=== PATIENT | female | born 1980 | race Caucasian/White ===

== ENCOUNTER → 2020-06-25 16:11 | Outpatient (CLI) | payer OTHER, SELFPAY ==
--- NOTE | ~2020-06-25 | MM_ITS ---
EXAMINATION: MM screening [facility] BI w diogo HISTORY: Screening mammogram TECHNIQUE: Craniocaudal and mediolateral oblique 3-D tomosynthesis images were obtained and synthetic 2-D images were generated. CAD analysis was submitted and interpreted. COMPARISON: 01/18/2019, 01/08/2019 BREAST PARENCHYMAL COMPOSITION: The breasts are heterogeneously dense, which may obscure small masses . FINDINGS: There is no evidence of suspicious mass, calcification, or architectural distortion to sugg est malignancy in either breast. There has been no suspicious interval change. IMPRESSION: 1. No mammographic evidence of malignancy. 2. Recommend routine screening mammography in one year. BI-RADS Category 1: Negative Reviewed, dictated and finalized at location A. NURSE
== END ==
PROVIDERS: Visit Provider Obstetrics & Gynecology
DX: Z12.31 Encounter for screening mammogram for malignant neoplasm of breast (principal)
CPT/HCPCS: 77063; 77067

== ENCOUNTER 2021-06-02 18:45 | Emergency (ER) | payer OTHER, SELFPAY ==
--- NOTE | ~2021-06-02 | XR_ITS ---
EXAMINATION: XR wrist RT min 3V INDICATION: Right wrist pain TECHNIQUE: Four views of the right wrist are obtained. COMPARISON: None available FINDINGS: There is no fracture, dislocation, or subluxation. The bones, soft tissues, and joint space s are normal. IMPRESSION: 1. No acute osseous abnormality. Reviewed, dictated and finalized at location A.
--- NOTE | ~2021-06-02 | XR_ITS ---
EXAMINATION: XR hand RT min 3V INDICATION: Right hand pain TECHNIQUE: Three views of the right hand are obtained. COMPARISON: None available FINDINGS: There is no fracture, dislocation, or subluxation. The bones, soft tissues, and joint space s are normal. IMPRESSION: 1. No acute osseous abnormality. Reviewed, dictated and finalized at location A.
[2021-06-02 18:52] VITALS: BP 138/86; PULSE 76; RESP 18; TEMP 37.1; O2SAT 100
--- NOTE | 2021-06-02 18:52 | ED.UPPEXIN ---
HPI - Extremity Injury (Upper) General Chief Complaint: Extremity Injury, Upper Stated Complaint: Pain Rt Thumb Time Seen by Provider: 06/02/21 19:00 Source: patient Mode of arrival: ambulatory Limitations: no limitations History of Present Illness HPI narrative: Sarah Jerome is a 40-year-old female with PMH of HTN who comes to [facility] after a fall this morning while training for a half marathon. She fell forward in the dark after catching her foot on the crack in the sidewalk and landed on her right palm harder than her left she also hit her right knee which she has an abrasion but she did not hit her face or chest. She is here for pain in her base of her right thumb on the palmar side which also has pain on movement of her wrist flexion extension or laterally Related Data Allergies Allergy/AdvReac Type Severity Reaction Status Date / Time oseltamivir Allergy Severe N/V Verified 06/02/21 19:15 Review of Systems Review of Systems: CONSTITUTIONAL: Denies fever, chills, sweats. EYES: Denies visual changes, redness, discharge. ENT: Denies rhinorrhea, congestion, sore throat, otalgia. CARDIOVASCULAR: Denies chest pain, palpitations, edema. RESPIRATORY: Denies dyspnea, wheezing, cough GASTROINTESTINAL: Denies abdominal pain, nausea, vomiting, diarrhea. GENITOURINARY: Denies dysuria, hematuria, abnormal discharge SKIN: Denies rash or itching. NEUROLOGIC: Denies numbness, or focal weakness. PSYCHIATRIC: Denies anxiety or depression. Right palmar base of thumb ecchymosis with pain on movement up or down or to the side PMFSH Past Medical History Medical History Relies on partner's vasectomy for primary method of contraception 2019 Surgical History Surgical History History of endometrial ablation 2019 Family History Family History Sibling Family history of migraine headaches Mother Hypertension Father Asthma Family history of bronchitis Other Diabetes mellitus Family history of allergic disorder Social History Social History Smoking status: Never smoker Alcohol intake: current Comments At time of signature, I agree with nursing past medical, surgical, social and family history. There is no relevant family history pertinent to the presenting complaint. Exam Narrative: GENERAL: This is a well-nourished, well-developed patient, in mild distress. HEAD: normocephalic, atraumatic. EYES: Sclera clear/white. Vision is grossly intact. EARS: External ears normal, Hearing grossly intact. NOSE: External nose normal without nasal discharge, nares without redness, no rhinorrhea. THROAT: Mucous membranes moist, NECK: Neck supple, non-tender CARDIOVASCULAR: Regular rate and rhythm without murmurs, gallops, or rubs. RESPIRATORY: Clear to auscultation. Breath sounds equal bilaterally. No wheezes, rales, or rhonchi. GASTROINTESTINAL: Abdomen soft, non-tender, SKIN: warm, intact with no suspicious lesions or rash, good texture and turgor. Abrasions right knee NEURO: awake, alert, and oriented to person, place and time. There were no obvious focal neurologic abnormalities. Steady gait EXTREMITIES: Normal range of motion. Left hand has good range of motion right hand is able to do finger opposition even with swelling ecchymosis at the base of her right thumb on the palmar side but has pain with flexion extension and varus valgus movement she denies any pain in her elbow and is able to lift her arm overhead; denies pain in her neck BACK: Nontender without deformity Course Course Emergency Course: Patient fell on ground this morning early before work and has continued to have right hand pain along with ecchymosis at the base of the right thumb X-ray of wrist and right hand shows: Hand no fracture dislocation subluxation soft tissues and joint spa
== END 2021-06-02 19:38 | disposition home or self-care (01) ==
PROVIDERS: Emergency Provider Nurse Practitioner; PCP Family Medicine
DX: T14.90XA Injury, unspecified, initial encounter (principal); W01.0XXA Fall on same level from slipping, tripping and stumbling without subsequent striking against object, initial encounter; I10 Essential (primary) hypertension
CPT/HCPCS: 73110; 73130; 99213; G0463

== ENCOUNTER → 2022-06-17 15:58 | Outpatient (CLI) | payer BC, SELFPAY ==
--- NOTE | ~2022-06-17 | MM_ITS ---
EXAMINATION: MM screening [facility] BI w diogo HISTORY: Screening mammogram TECHNIQUE: Craniocaudal and mediolateral oblique 3-D tomosynthesis images were obtained and synthetic 2-D images were generated. CAD analysis was submitted and interpreted. COMPARISON: 06/25/2020 bilateral screening mammogram 01/18/2019 bilateral diagnostic mammography and bilateral Limited breast ultrasound 01/08/2019 bilateral screening mammogram BREAST PARENCHYMAL COMPOSITION: There are scattered areas of fibroglandular density. FINDINGS: There is no evidence of suspicious mass, calcification, or architectural distortion to sugg est malignancy in either breast. There has been no suspicious interval change. IMPRESSION: 1. No mammographic evidence of malignancy. 2. Recommend routine screening mammography in one year. BI-RADS Category 1: Negative Reviewed, dictated and finalized at location A.
== END ==
PROVIDERS: PCP Obstetrics & Gynecology; Visit Provider Obstetrics & Gynecology
DX: Z12.31 Encounter for screening mammogram for malignant neoplasm of breast (principal)
CPT/HCPCS: 77063; 77067

== ENCOUNTER 2023-05-17 10:15 | Observation (INO) | payer BC, SELFPAY ==
[2023-05-17] VITALS (45 sets, daily range): BP systolic 111–157; BP diastolic 74–105; PULSE 71–96; RESP 8–24; TEMP 36.3–36.8; O2SAT 96–100
--- NOTE | ~2023-05-17 | NM_ITS ---
EXAMINATION: NM natacha stress w perfusion DATE: 05/18/2023 12:53 INDICATION: Chest pain. TECHNIQUE: Rest images were obtained following intravenous administration of 12.6 mCi Tc99m tetrofosm in (Myoview). The patient was infused intravenously with Lexiscan (regadenoson). Then, 34.6 mCi Tc99m tetrofosmin (Myoview) was administered intravenously, and stress images were obtained. Data was omayra nstructed into short axis and horizontal and vertical long axis SPECT images. Gated SPECT images were also obtained. COMPARISON: None. FINDINGS: There is no definite reversible or fixed perfusion abnormality to suggest ischemia or infar ction. There is no segmental wall motion abnormality. Left ventricular ejection fraction measures > 70%. IMPRESSION: 1. No definite ischemia or infarct. 2. Normal left ventricular ejection fraction measuring >70%. Reviewed, dictated and finalized at location E.
[2023-05-17 10:41] LABS: Basophils Absolute Auto 0.1 K/mm3 (0.0-0.1); Basophils Percent Auto 0.9 % (0.2-1.2); Hematocrit 38.6 % (37.0-47.0); Hemoglobin 12.6 g/dL (12.0-15.0); Immature Granulocyte Absolute 0.02 K/mm3 (0.00-0.031); Immature Granulocyte Percent A 0.3 % (0-0.5); Lymphocytes Absolute Auto 1.76 K/mm3 (0.9-3.2); Lymphocytes Percent Auto 27.3 % (18.3-44.2); Mean Corpuscular HGB Conc 32.6 g/dl (32-36); Mean Corpuscular Volume 94.8 fl (80-100); Monocytes Absolute Auto 0.4 K/mm3 (0.1-0.6); Monocytes Percent Auto 5.7 % (2.6-8.5); Neutrophils Absolute Auto 4.2 K/mm3 (1.3-6.7); Neutrophils Percent Auto 65.8 % (45.5-73.1); Platelet Count Result 325 k/mm3 (150-375); Red Blood Count 4.07 M/mm3 (4.2-5.4); Red Cell Distribution Width 14.3 % (11.5-14.5); White Blood Count 6.4 K/mm3 (4.5-10.0)
[2023-05-17 10:51] LABS: Alanine Aminotransferase 26 U/L (6-35); Albumin Level 4.6 g/dL (3.5-5.1); Alkaline Phosphatase 67 U/L (38-126); Anion Gap 10 mmol/L (8-16); Aspartate Amino Transferase 30 U/L (14-36); Blood Urea Nitrogen 12 mg/dL (7-17); Calcium 8.9 mg/dL (8.4-10.2); Carbon Dioxide 23 mmol/L (22-30); Chloride 103 mmol/L (98-107); Estimated CRCL calculation 76 ml/min; Estimated Glomerular Filt Rate > 60; Glucose 98 mg/dL (65-110); Lipase 192 U/L (23-300); Potassium 4.1 mmol/L (3.4-5.0); Sodium 136 mmol/L (137-145)
[2023-05-17 10:56] LABS: Partial Thromboplastin Time 25.6 SECONDS (22.3-36.8); Prothrombin Time 13.7 Seconds (11.1-14.7)
[2023-05-17 11:02] LABS: Troponin I < 0.012 ng/mL (0.000-0.034)
--- NOTE | 2023-05-17 11:46 | ED.CHESTPAIN ---
HPI - Chest Pain General Chief Complaint: Chest Pain Stated Complaint: CP Time Seen by Provider: 05/17/23 10:31 History of Present Illness HPI narrative: This is a 42-year-old female, with past history of hypertension and preeclampsia, who presents emergency department complaining of chest pain. The patient states over the past week, she has had intermittent pressure-like left-sided chest pain without radiation and associated with nausea. Approximately an hour prior to arrival she had a much more significant episode, associated with shortness of breath and nausea. On evaluation by EMS, the patient's vital signs remarkable for hypertension with systolic pressure in the 170s. The patient was given aspirin and sublingual nitroglycerin with improvement of her pain. She states she has been under significant stress at work but has no other complaints at this time Related Data Allergies Allergy/AdvReac Type Severity Reaction Status Date / Time oseltamivir Allergy Severe N/V Verified 05/17/23 10:22 Review of Systems Review of Systems: CONSTITUTIONAL: Denies fever, chills, or sweats. CARDIOVASCULAR: Chest pain denies palpitations, or edema. RESPIRATORY: Dyspnea denies cough GASTROINTESTINAL: Nausea denies abdominal pain, vomiting, or diarrhea. GENITOURINARY: Denies dysuria or hematuria. SKIN: Denies rash or itching. MUSCULOSKELETAL: Denies back pain, joint pain, or myalgia. NEUROLOGIC: Denies headache, numbness, dizziness, or weakness. PSYCHIATRIC: Denies anxiety or depression. [facility] Past Medical History Medical History Nodule of soft tissue Relies on partner's vasectomy for primary method of contraception 2019 Surgical History Surgical History History of endometrial ablation 2019 Family History Family History Sibling Family history of migraine headaches Mother Hypertension Father Asthma Family history of bronchitis Other Diabetes mellitus Family history of allergic disorder Social History Social History Smoking status: Never smoker Alcohol intake: current Substance use: never Substance use type: does not use Lack of Transportation: No Lack of Food: Never True Current Housing: I Have Housing Concerned About Future Housing: No Difficulty Paying Gas/Electric Bills: No Difficulty Paying for Meds: No Currently Unemployed: No Education: Associate Degree Difficulty w/ Childcare or Family Care: No Spiritual care concerns: No Exam Narrative: GENERAL: Well-developed, well-nourished, and in no acute distress. HEAD: Normocephalic, atraumatic. EYES: PERRLA and EOMI. NECK: Supple. No adenopathy or masses. No carotid bruits or JVD CHEST: Clear to auscultation. No respiratory distress. No wheezes rales or rhonchi HEART: Regular rate and rhythm. No murmur heard. Normal peripheral pulses. ABDOMEN: Soft, nontender, nondistended, normal active bowel sounds. EXTREMITIES: Normal range of motion. No edema. SKIN: Warm, dry, no rash. NEURO: Alert and oriented x3. Moving all 4 limbs purposefully. PSYCH: Normal mood and affect. Course Course Emergency Course: 11:51 - EKG not concerning for ischemia. Troponin negative. Heart score 4. I advised the patient that I would recommend admission for cardiology evaluation and work-up. The patient is hesitant and requests to repeat her troponin and discuss this further. 15:00 - Repeat troponin negative. After further discussion, the patient agrees to admission. I discussed the patient with hospitalist DANIELA Mahoney who accepts admission. Vital Signs Vital signs: Vital Signs Temperature 98.2 F 05/17/23 10:20 Pulse Rate 78 05/17/23 10:20 Respiratory Rate 16 05/17/23 10:20 Blood Pressure 146/92 H 05/17/23 10:20 Temperature 98.2 F 05/17/23 10:20 Pul
[2023-05-17 13:44] LABS: Troponin I < 0.012 ng/mL (0.000-0.034)
--- NOTE | 2023-05-17 17:22 | PM.IMHP ---
H&P: HPI History of Present Illness Date/Time: 05/17/23 17:22 Chief Complaint: chest pain Narrative: 42-year-old female presents here with chest pain with past medical history of high blood pressure and preeclampsia. Patient reports that yesterday she had an episode of jaw and back pain that was brief and reported to ED provider that she has had intermittent left-sided CP for the past week. she reports that she was initially dismissive of the pain due to the lack of severity. However she developed chest pain today that was an 8/10, severe, midsternal, and with associated shortness of breath, diaphoresis, and nausea. She described it as if an elephant was sitting on her chest and compressive. At arrival patient's blood pressure was 175/126. She was given sublingual nitro and aspirin. With nitro administration she had reduction in chest pain and improvement in blood pressure. However pain has remained a 2 to 3/10. She reports being very active and runs 3 miles 3-4 days of the week. No changes in activity tolerance. no recent changes or reduction in blood pressure medication. Review of Systems Review of Systems: Patient denies syncope, shortness of breath with activity, reduction in activity tolerance, palpitations, recent illness, changes in medication or noncompliance to medication. All systems reviewed & are unremarkable except as noted in HPI and below PMFSH Past Medical History Medical History (Updated 05/17/23 @ 23:17 by Maru Ortega APRN) Essential hypertension Preeclampsia Surgical History Surgical History (Updated 05/17/23 @ 23:17 by Maru Ortega APRN) History of cholecystectomy History of dilation and curettage History of endometrial ablation 2019 History of left knee surgery History of tonsillectomy History of umbilical hernia repair Family History Family History (Updated 05/17/23 @ 23:18 by Maru Ortega APRN) Sibling Family history of migraine headaches Mother Hypertension Cerebrovascular accident Father Asthma Family history of bronchitis Heart failure Grandparent Acute myocardial infarction Other Diabetes mellitus Family history of allergic disorder Social History Social History (Updated 05/17/23 @ 23:19 by Maru Ortega APRN) Social History: Currently lives at home with her 2 children. Surrogate decision maker: Elaine Paniagua, mother. Full code. Smoking status: Never smoker Alcohol intake: current Substance use: never Substance use type: does not use Lack of Transportation: No Lack of Food: Never True Current Housing: I Have Housing Concerned About Future Housing: No Difficulty Paying Gas/Electric Bills: No Difficulty Paying for Meds: No Currently Unemployed: No Education: Associate Degree Difficulty w/ Childcare or Family Care: No Spiritual care concerns: No Meds Home Medications and Allergies Home Medications Medication Instructions Recorded Confirmed Type benazepril 40 mg tablet 40 mg PO DAILY #90 tabs 09/22/22 05/17/23 Rx Allergies Allergy/AdvReac Type Severity Reaction Status Date / Time oseltamivir Allergy Severe N/V Verified 05/17/23 10:22 Vital Signs Vital Signs - 24 hr 05/17/23 10:20 05/17/23 10:21 05/17/23 10:22 Temperature 98.2 F Pulse Rate 78 77 77 Respiratory Rate 16 15 Blood Pressure 146/92 H Pulse Oximetry 99 05/17/23 10:54 05/17/23 11:00 05/17/23 11:01 Temperature Pulse Rate 81 83 80 Respiratory Rate 16 13 17 Blood Pressure 143/105 H Pulse Oximetry 98 98 99 05/17/23 11:20 05/17/23 11:30 05/17/23 11:31 Temperature Pulse Rate 74 75 76 Respiratory Rate 20 14 11 L Blood Pressure 150/97 H Pulse Oximetry 98 100 99 05/17/23 11:45 05/17/23 11:46 05/17/23 12:00 Temperature Pulse Rate 81 75 82 Respiratory Rate 14 15 15 Blood Pressure 140/101 H 143/95 H Pulse Oximetry 98 99 98 05/17/23 12:01 05/17/23 12:15 05/17/23 1
[2023-05-17 17:25] LABS: Troponin I < 0.012 ng/mL (0.000-0.034)
[2023-05-17] MEDS: NITROGLYCERIN OINTMENT 1 INCH DOSE 0.5 INCH TRANSDERM (17:45)
[2023-05-17] MEDS: ACETAMINOPHEN 500 MG TABLET 1000 MG PO (21:02)
[2023-05-17] MEDS: lisinopriL 20 MG TABLET 40 MG PO (21:03)
[2023-05-18] VITALS (11 sets, daily range): BP systolic 106–111; BP diastolic 65–78; PULSE 60–102; RESP 16–20; TEMP 36.4–36.7; O2SAT 97–99
--- NOTE | 2023-05-18 | ECHO_ITS ---
Patient Info Name: Sarah Paniagua Age: 42 years : 1980 Gender: Female Ht: 64 in Wt: 146 lbs BSA: 1.74 m2 HR: 76 bpm BP: 106 / 76 mmHg Heart Rhythm: Sinus Rhythm Technical Quality: Good Exam Date: 05/18/2023 11:17 AM Exam Location: [facility] Patient Status: Outpatient Admit Date: 05/17/2023 Staff Ordering Physician: Maru Ortega APRN Table Inspector: Marlin Webb RDCS Attending Provider: Bolivar Al MD Referring Physician: Jordan SHANE; Exam Type: CA echo doppler color flow Study Info Indications - CP W/PARTIAL RESOLUTION WITH NITRO Complete two-dimensional, color flow and Doppler transthoracic echocardiogram is performed. Summary 1. Complete two-dimensional, color flow and Doppler transthoracic echocardiogram is performed. 2. Left ventricular chamber dimension is normal. 3. Left ventricular systolic function is normal, estimated at 65-70%. 4. There is mildly increased left ventricular wall thickness. 5. The left ventricular diastolic function is grade I diastolic dysfunction. 6. Right ventricular systolic function is normal. 7. No significant valvular disease. Left Ventricle Left ventricular chamber dimension is normal. Left ventricular systolic function is normal, estimated at 65-70%. There is mildly increased left ventricular wall thickness. The left ventricular diastolic function is grade I diastolic dysfunction. Right Ventricle Right ventricular chamber dimension is normal. Right ventricular systolic function is normal. Left Atria Left atrial chamber dimension is normal. Right Atria Right atrial chamber dimension is normal. Atrial Septum Intact interatrial septum visualized by color flow imaging. Aortic Valve The aortic valve is not well visualized. There is no aortic valve stenosis. There is no aortic valve regurgitation. Pulmonic Valve The pulmonic valve is not well visualized. Mitral Valve There is trace mitral valve regurgitation. Tricuspid Valve There is trace tricuspid valve regurgitation. Pericardium/Pleural There is no pericardial effusion. Inferior Vena Cava Normal inferior vena cava with >50% collapse upon inspiration consistent with normal right atrial pressure, 3 mmHg. Aorta The aortic root size at the sinus of Valsalva is normal. Left Ventricular Outflow Tract Name Value Normal LVOT 2D LVOT Diameter 1.9 cm Pulmonic Valve Name Value Normal RVOT Doppler RVOT Peak Gradient 2 mmHg PV Doppler PV Peak Gradient 3 mmHg Mitral Valve Name Value Normal MV Doppler MV Decel Will 240 cm/s2 MV PHT 91 ms MV Area (PHT) 2
--- NOTE | 2023-05-18 | EST_ITS ---
Patient Info Name: Sarah Paniagua Age: 42 years : 1980 Gender: Female Ht: 64 in Wt: 141 lbs BSA: 1.71 m2 HR: 68 bpm BP: 128 / 84 mmHg Heart Rhythm: Sinus Rhythm Exam Date: 05/18/2023 9:23 AM Exam Location: [facility] Stress Patient Status: Inpatient Admit Date: 05/17/2023 Staff Ordering Physician: Pedrito Carrillo APRN Attending Provider: Bolivar Al MD Exercise Technologist: Karlene Pratt CT Exercise Physician: Erick Schafer DO Exam Type: CA stress natacha w NM Study Info Indications R07.89 - Other chest pain A regadenoson stress test was performed. Summary 1. 1. Negative lexiscan stress test for ischemic ST changes by ECG criteria. 2. 2. Stable hemodynamics throughout the test. 3. 3. Nuclear scan to follow and will be reported separately. Please correlate with it. 4. 4. Patient informed of the above results. Protocol: Lexiscan Stress ECG Details Stage: REST Duration (min): 1 min : 52 sec HR (bpm): 82 SBP (mmHg): 128 DBP (mmHg): 84 Stage: REST Duration (min): 11 min : 7 sec HR (bpm): 69 SBP (mmHg): 128 DBP (mmHg): 84 Stage: STAGE 1 Duration (min): 1 min : 0 sec HR (bpm): 101 SBP (mmHg): 117 DBP (mmHg): 85 Stage: RECOVERY Duration (min): 1 min : 0 sec HR (bpm): 115 SBP (mmHg): 117 DBP (mmHg): 85 Stage: RECOVERY Duration (min): 2 min : 0 sec HR (bpm): 114 SBP (mmHg): 117 DBP (mmHg): 85 Stage: RECOVERY Duration (min): 3 min : 0 sec HR (bpm): 108 SBP (mmHg): 129 DBP (mmHg): 83 Stage: RECOVERY Duration (min): 4 min : 0 sec HR (bpm): 93 SBP (mmHg): 129 DBP (mmHg): 83 Stage: RECOVERY Duration (min): 5 min : 0 sec HR (bpm): 89 SBP (mmHg): 129 DBP (mmHg): 83 Stage: RECOVERY Duration (min): 6 min : 0 sec HR (bpm): 81 SBP (mmHg): 129 DBP (mmHg): 83 Stage: RECOVERY Duration (min): 7 min : 0 sec HR (bpm): 80 SBP (mmHg): 124 DBP (mmHg): 77 Stage: RECOVERY Duration (min): 7 min : 20 sec HR (bpm): 82 SBP (mmHg): 124 DBP (mmHg): 77 Rest HR: 69 bpm Peak HR: 119 bpm Rest Sys BP: 128 mmHg Peak Sys BP: 129 mmHg Max Pred HR: 176 bpm % Max Pred HR: 68 % Target HR: 150 bpm Max RPP: 15,351 bpm*mmHg Termination Reason: Completed protocol, nausea Cardiac Symptoms: Chest discomfort, Shortness of breath, Lightheaded/pre-syncope Total Time: 1 min : 0 sec Rest Velasquez BP: 84 mmHg Peak Velasquez BP: 83 mmHg Total Dose: 0.4 mg Aminophylline Dose: 100 mg Resting ECG Sinus rhythm. Stress ECG No ST changes. Patient given Aminophylline 100 mg IV x1 for severe symptoms. Arrhythmias None. Report Signatures
[2023-05-18 05:07] LABS: Basophils Absolute Auto 0.1 K/mm3 (0.0-0.1); Basophils Percent Auto 0.9 % (0.2-1.2); Eosinophils Absolute Auto 0.1 K/mm3 (0-0.3); Eosinophils Percent Auto 1.9 % (0-4.4); Hematocrit 37.5 % (37.0-47.0); Hemoglobin 11.8 g/dL (12.0-15.0); Immature Granulocyte Absolute 0.02 K/mm3 (0.00-0.031); Immature Granulocyte Percent A 0.3 % (0-0.5); Lymphocytes Absolute Auto 2.63 K/mm3 (0.9-3.2); Lymphocytes Percent Auto 39.3 % (18.3-44.2); Mean Corpuscular HGB Conc 31.5 g/dl (32-36); Mean Corpuscular Hemoglobin 30.7 pg (26-34); Mean Corpuscular Volume 97.7 fl (80-100); Mean Platelet Volume 9.3 fl (7.4-10.4); Monocytes Absolute Auto 0.4 K/mm3 (0.1-0.6); Monocytes Percent Auto 6.6 % (2.6-8.5); Neutrophils Absolute Auto 3.4 K/mm3 (1.3-6.7); Platelet Count Result 300 k/mm3 (150-375); Red Blood Count 3.84 M/mm3 (4.2-5.4); Red Cell Distribution Width 14.5 % (11.5-14.5); White Blood Count 6.7 K/mm3 (4.5-10.0)
[2023-05-18 05:21] LABS: Anion Gap 7 mmol/L (8-16); Blood Urea Nitrogen 13 mg/dL (7-17); Calcium 8.7 mg/dL (8.4-10.2); Carbon Dioxide 25 mmol/L (22-30); Chloride 103 mmol/L (98-107); Estimated CRCL calculation 67 ml/min; Estimated Glomerular Filt Rate > 60; Glucose 94 mg/dL (65-110); Potassium 4.2 mmol/L (3.4-5.0); Sodium 135 mmol/L (137-145)
[2023-05-18] MEDS: ACETAMINOPHEN 325 MG TABLET 650 MG PO (08:18)
--- NOTE | 2023-05-18 15:24 | PM.DS ---
DS: Admitting Diagnosis Discharge Date 05/18/2023 Admitting Diagnosis Chest pain, essential hypertension DS: Discharge Diagnosis Discharge Diagnosis (1) Hypertensive urgency: Code(s): I16.0 - Hypertensive urgency Status: Acute Assessment and Plan: Causing chest pain/heaviness (2) Diastolic dysfunction without heart failure: Code(s): I51.89 - Other ill-defined heart diseases Status: Acute Assessment and Plan: Grade 1 diastolic dysfunction (3) Chest pain: Code(s): R07.9 - Chest pain, unspecified Status: Acute Assessment and Plan: negative troponin x3, negative Lexiscan/NM testing (4) Left ventricular hypertrophy due to hypertensive disease: Code(s): I11.9 - Hypertensive heart disease without heart failure Status: Acute Assessment and Plan: Mildly increased left ventricular wall thickness Plan Add hydrochlorothiazide to home dose of benazepril, follow up with primary care for possible Cardiology referral DS: Summary Hospital Course Reason for hospitalization: Chest pain and elevated blood pressure Hospital Course: Patient was admitted to the hospital due to elevated blood pressure and chest pain that was partially relieved by nitroglycerin. Patient is very athletic runs frequently. Eats a healthy diet and does not smoke. Her story was suspicious for ACS but her troponins were negative EKG nonischemic and stress test is negative. Echocardiogram showed grade 1 diastolic dysfunction with some left ventricular wall thickening. Discuss this with patient and requested she follow primary care for possible referrals to Cardiology. Discharge with addition hydrochlorothiazide to patient's benazepril. Status at Discharge Cognitive/behavioral status at discharge: awake, alert, oriented and very pleasant Functional status at discharge: independent ambulation Overall status at discharge: patient is back to baseline Time Spent with Patient Time attestation: Total time spent providing and/or coordinating discharge services: 35 mins Time spent: Greater than 30 minutes Exam Const: General: no acute distress and uncomfortable HENMT: Mouth: Yes moist mucous membranes Eyes: General: appearance normal, both eyes and all related structures Sclera: sclerae normal Pupils: Equal, round and reactive pupils present Resp: Effort & Inspection: normal respiratory effort Auscultation: clear to auscultation bilaterally Cardio: Rate: regular rate Rhythm: regular rhythm Other: S1-S2 present without murmur, rub, ectopy. GI: Other: Nontender and no guarding. Skin: General skin exam: normal color and no rashes or lesions noted Wounds: no wounds Neuro: Cranial nerves: Yes Equal, round and reactive pupils present Speech: normal speech Sensory Exam: normal sensation Other: A/Ox4 Extrem: General: normal to inspection Other: No peripheral edema. Psych: Mental Status: mental status grossly normal Affect: normal affect Other: Good insight and judgment, pleasant. DS: Data Data Completed and Pending Completed studies during hospitalization: Stress test nuclear Medicine, chest x-ray, Lexiscan stress test, echocardiogram Labs on day of discharge: Labs from last 24 hours 05/18/23 05/17/23 04:36 16:47 WBC 6.7 RBC 3.84 L Hgb 11.8 L Hct 37.5 MCV 97.7 MCH 30.7 MCHC 31.5 L RDW 14.5 Plt Count 300 MPV 9.3 Immature Gran % (Auto) 0.3 Neut % (Auto) 51.0 Lymph % (Auto) 39.3 [place] % (Auto) 6.6 Eos % (Auto) 1.9 Baso % (Auto) 0.9 Lymph # (Auto) 2.63 [place] # (Auto) 0.4 Eos # (Auto) 0.1 Baso # (Auto) 0.1 Abs Immat Gran (auto) 0.02 Absolute Neuts (auto) 3.4 Absolute Nucleated RBC 0.0 Nucleated RBC % 0.0 Sodium 135 L Potassium 4.2 Chloride 103 Carbon Dioxide 25 Anion Gap 7 L BUN 13 Creatinine 0.80 Estim Creat Clear Calc 67 Estimated GFR > 60 Glucose 94
== END 2023-05-18 15:47 | disposition home or self-care (01) ==
LOC: ANHED 15:08 → ANHIMU 16:17
PROVIDERS: Admitting Provider Chiropractor; Emergency Provider Preventive Medicine Aerospace Medicine; PCP Family Medicine; Visit Provider Internal Medicine
DX: I16.0 Hypertensive urgency (principal); R07.9 Chest pain, unspecified; I11.9 Hypertensive heart disease without heart failure; F10.90 Alcohol use, unspecified, uncomplicated
CPT/HCPCS: 36415; 78452; 80048; 80053; 83690; 84484; 85025; 85610; 85730; 93017; 93306; 99285; A9270; A9502; G0378; J0280; J2785

== ENCOUNTER 2023-05-17 10:18 | Emergency (ER) | payer BC, SELFPAY ==
--- NOTE | ~2023-05-17 | XR_ITS ---
XR chest 2V DATE: 05/17/2023 10:39 INDICATION: Chest pain since yesterday TECHNIQUE: 2 views COMPARISON: September 30, 2005 PA and lateral chest FINDINGS: Normal heart size. No hilar or mediastinal enlargement. No pulmonary infiltrate or consolid ation, pleural effusion or pulmonary vascular congestion or pneumothorax is detected. Mild thoracic levoscoliosis. Surgical clips, right upper quadrant, consistent with cholecystectomy. IMPRESSION: No active cardiopulmonary disease Reviewed, dictated and finalized at location B.
--- NOTE | 2023-05-17 10:19 | ECG_ITS ---
Measurements Intervals [place] Rate: 76 P: 0 [place]: 138 QRS: 9 QRSD: 73 T: 24 QT: 369 QTc: 416 Interpretive Statements SINUS RHYTHM POSSIBLE RIGHT VENTRICULAR CONDUCTION DELAY [RSR (QR) IN V1/V2] NO PREVIOUS ECG AVAILABLE FOR COMPARISON Electronically Signed On 05-17-2023 15:45:45 CDT by Marleny Young M.D.
== END 2023-05-17 10:39 | disposition left against medical advice (07) ==
PROVIDERS: Emergency Provider Preventive Medicine Aerospace Medicine; PCP Family Medicine
DX: Z53.21 Procedure and treatment not carried out due to patient leaving prior to being seen by health care provider (principal)
CPT/HCPCS: 71046; 93005; 99199

== ENCOUNTER 2024-09-03 09:23 | Outpatient (CLI) | payer OTHER, SELFPAY ==
--- NOTE | ~2024-09-03 | MMUS_ITS ---
EXAMINATION: MM diagnostic woodrow BI w diogo, US axilla RT HISTORY: Palpable right axillary lump TECHNIQUE: Additional 3-D tomosynthesis images of the breasts were performed and synthetic 2-D images were generated. CAD analysis was submitted and interpreted. High resolution right axillary ultrasoun d was performed. COMPARISON: Comparison to multiple prior studies sequentially, with oldest reviewed study dated 01/08. BREAST PARENCHYMAL COMPOSITION: Not dense: There are scattered areas of fibroglandular density. FINDINGS: MAMMOGRAPHIC FINDINGS: The breasts are stable. No new masses, calcifications or architectural distortion in either breast to suggest malignancy. ULTRASOUND: Limited right axillary ultrasound normal-appearing lymph node with fatty hilum. No cortical thickenin g. No suspicious masses to suggest malignancy. IMPRESSION: 1. No evidence for malignancy in either breast. 2. Routine yearly screening mammogram and regular clinical breast examination are recommended. BI-RADS Category 2: Benign finding(s). Reviewed, dictated and finalized at location A. [facility] IMPRESSION: 1. No evidence for malignancy in either breast. 2. Routine yearly screening mammogram and regular clinical breast examination a re recommended. BI-RADS Category 2: Benign finding(s).
== END 2024-09-03 09:24 | disposition home or self-care (01) ==
LOC: MICIMG 09:25
PROVIDERS: PCP Family Medicine; Visit Provider Obstetrics & Gynecology
DX: N63.10 Unspecified lump in the right breast, unspecified quadrant (principal)
CPT/HCPCS: 76882; 77062; 77066; G0279